=== PATIENT | male | born 2000 | race African-American/Black ===

== ENCOUNTER 2018-05-12 09:19 | Emergency (ER) | payer OTHER ==
[~2018-05-12] VITALS: Ht 177.8 cm; Wt 70.0 kg
[2018-05-12] MEDS ORDERED: ACETAMINOPHEN 500MG TABLET PO ONE (14:00)
[2018-05-12 14:17] LABS: CLARITY URINE CLEAR (CLEAR); COLOR URINE YELLOW (YELLOW); KETONES URINE 1+ (NEGATIVE); LEUKOCYTE ESTERASE URINE 2+ (NEGATIVE); NITRITE URINE NEGATIVE (NEGATIVE); OCCULT BLOOD URINE NEGATIVE (NEGATIVE); PROTEIN URINE TRACE (NEGATIVE); SPECIFIC GRAVITY URINE 1.034 (1.005-1.030)
[2018-05-12] MEDS ORDERED: AZITHROMYCIN 500 MG TABLET PO ONE (16:00)
[2018-05-12] MEDS ORDERED: ONDANSETRON 4MG ODT PO ONE (16:15)
[2018-05-12 16:36] VITALS: BP 120/74
[2018-05-16 09:08] LABS: NEISSERIA GONORRHOEAE NAA Negative (Negative)
[2018-05-16 14:30] LABS: CHLAMYDIA TRACHOMATIS NAA Positive (Negative)
== END 2018-05-12 16:38 | disposition home or self-care (01) ==
LOC: ER 11:42 → CANBEDREQ 18:00
DX: N50.811 Right testicular pain (principal); N39.0 Urinary tract infection, site not specified; W51.XXXA Accidental striking against or bumped into by another person, initial encounter; Y93.67 Activity, basketball; Y92.89 Other specified places as the place of occurrence of the external cause
CPT/HCPCS: 76870; 81003; 87086; 87491; 87591; 93976; 99285; Q0162